=== PATIENT | female | born 1960 | race Caucasian/White ===

== ENCOUNTER 2016-07-22 09:11 | Observation (INO) | payer MEDICARE, OTHER ==
[~2016-07-22] VITALS: Ht 160 cm; Wt 46.0 kg
[2016-08-08] MEDS ORDERED: MS CONTIN DPS30 MG PO (17:37)
[2016-08-08] MEDS ORDERED: ASA325 MG PO (17:37)
[2016-08-08] MEDS ORDERED: NORCO 7.5-3251 EACH PO (17:37)
[2016-08-08] MEDS ORDERED: PROTONIX40 MG PO (17:37)
[2016-08-08] MEDS ORDERED: SYNTHROID DP0.075 MG PO (17:37)
[2016-08-08] MEDS ORDERED: ZANAFLEX4 MG PO (17:38)
[2016-08-08] MEDS ORDERED: VIBRAMYCIN-DPS100 M2 PO (17:38)
[2016-08-08] MEDS ORDERED: PROAIR RESPICL90 MCG IH (17:38)
[2016-08-08] MEDS ORDERED: THERA1 EACH PO (17:38)
--- NOTE | 2016-08-10 14:56 | CO ---
ADMIT: 08/05/2016 RM/LOC: 527 [facility] MR#: [id number] 2620 [facility] [address] [place] [phone] [place] [address] Consultation SEX: F AGE: 55 : 1960 DATE OF CONSULTATION: 08/06/2016 ATTENDING PHYSICIAN: Giuliana Saab MD CONSULTING PHYSICIAN: Joaquim Solano MD REASON FOR CONSULTATION: A 5-beat run of nonsustained ventricular tachycardia. HISTORY OF PRESENT ILLNESS: Braydon is a 55-year-old female, who I was asked to see in consultation from Dr. Giuliana Saab regarding 5-beat run of nonsustained ventricular tachycardia. Braydon has no prior cardiac history, but does have history of smoking, but says she quit a couple months ago. She states that she has never had any cardiac history. She was admitted for exchange of her pain pump which she is on for chronic back pain. This morning, it sounds like while she was sleeping, she had a 5-beat run of asymptomatic nonsustained ventricular tachycardia. She denies any chest pain or shortness of breath, but she is quite inactive as she is in a wheelchair secondary to her chronic pain. She lives in [place] and follows with Dr. Herrera as her primary care physician. PAST MEDICAL HISTORY: 1. History of chronic pain. 2. History of spine back surgery x5 with subsequent intrathecal pain pump. 3. History of hypothyroidism, on replacement. 4. History of hysterectomy. ALLERGIES: PENICILLIN, WHICH CAUSES DIFFICULTY BREATHING. CURRENT MEDICATIONS: 1. Aspirin daily. 2. Hydrocodone. 3. MS Contin. 4. Protonix. 5. Pain pump. 6. Multivitamins. 7. Synthroid 75 mcg daily. 8. Tizanidine 4 mg 3 by mouth 3 times a day. 9. Vitamin B12 daily. SOCIAL HISTORY: She lives in [place]. She is disabled. She says she quit smoking about 2 months ago. She denies any alcohol use. Denies any illicit drug use. FAMILY HISTORY: She says family history both in her mother and maternal grandmother of heart failure. She denies any family history of early coronary artery disease or strokes. REVIEW OF SYSTEMS: GENERAL: Denies any fever, chills, or sweats. ADMIT: 08/05/2016 RM/LOC: 527 [facility] MR#: [id number] [address] [address] BRAYDON PE[address]A [address] [place] [id number] Consultation SEX: F AGE: 55 : 1960 HEENT: Denies any visual changes. No difficulty swallowing. GI: She was nauseated this morning. Denies any vomiting or diarrhea. GENITOURINARY: Denies any dysuria, hematuria. MUSCULOSKELETAL: She has chronic back pain and uses a wheelchair. CARDIAC: Denies any chest pain or orthopnea. No PND. PULMONARY: Denies any shortness of breath. She does have history of smoking, but quit a couple months ago. NEUROLOGIC: No history of TIA or strokes. PSYCHIATRIC: Denies any anxiety or depression. ENDOCRINE and HEMATOLOGIC: Does have history of hypothyroidism on replacement. Denies any history of cancer. SKIN: Denies any rashes. All other systems reviewed and negative. PHYSICAL EXAMINATION: VITAL SIGNS: Blood pressure 142/84, pulse 96, respirations 16, and oxygen 93%. GENERAL: She is in no acute distress. She is alert and oriented and conversant but somewhat sleepy today. HEENT: Normocephalic, atraumatic. Moist mucous membranes. NECK: Supple. No lymphadenopathy. No carotid bruits. HEART: Regular rate and rhythm. No murmurs, rubs, or gallops. LUNGS: Clear to auscultation bilaterally. ABDOMEN: Soft, nontender, and nondistended. EXTREMITIES: Shows no cyanosis, clubbing, or edema. MUSCULOSKELETAL: She has scoliosis and curved back. Gait was not assessed. She uses a wheelchair. NEUROLOGIC: Cranial nerves II through XII intact. She moves all 4 extremities. PSYCHIATRIC: She is alert, oriented, appropriate. DIAGNOSTIC DATA: EKG shows sinus rhythm, and is a normal EKG. IMPRESSION AND PLAN: 1. Nonsustained ventricular tachycardia. 2. Chronic back pain. 3. Hypothyroidism. 4. History of tobacco abuse. ADMIT: 08/05/2016 RM/LOC: 527 [facility] MR#: [id number] [address] [id number] BRAYDON PE[address]A [address] [place] [address] Consultation SEX: F AGE: 55 : 1960 RECOMMENDATIONS: She was asymptomatic during this 5-beat run of nonsustained ventricular tachycardia. She actually may have been sleeping during that episode. She has no history of coronary disease and is not having any ischemic symptoms and her EKG is normal. At this point, we will plan an outpatient evaluation with an echocardiogram and stress test. I would place a 48 hour Holter monitor also to evaluate for any arrhythmias. If she has any chest pain or shortness of breath or feeling of syncope or near syncope, she will let us know. Otherwise, I will see her back after the above testing is completed. Joaquim Solano MD/ beatrice JOB #: [id number] CC: Giuliana Saab MD, Attending Physician Edmar Herrera MD, Family Physician MD Giuliana Welch MD
--- NOTE | 2016-08-22 23:19 | DS ---
ADMIT: 08/05/2016 RM/LOC: 527 [facility] MR#: [id number] [facility]#: [id number] 2620 [facility] [address] [place] [phone] BRAYDON [address] [address] General Discharge Summary SEX: F AGE: 55 : 1960 ADMISSION DATE: 08/05/2016 DISCHARGE DATE: 08/07/2016 REASON FOR ADMISSION: 1. Intrathecal drug infusion system (pain pump) catheter revision. 2. Episode of ventricular tachycardia. DIAGNOSES: 1. Post laminectomy pain syndrome. 2. Chronic pain syndrome. 3. Ventricular tachycardia (self-limiting). 4. Encounter for adjustment and management of other implanted nervous system device. HISTORY OF PRESENT ILLNESS: Braydon is a 55-year-old patient of mine in the pain clinic. She was admitted to the hospital for revision of her intrathecal catheter, which was defective. She tolerated her surgery without incident. Postoperatively, she was kept in the hospital to observe for delayed respiratory depression and the plan was to discharge her the following day. During the night, Braydon had a short run of ventricular tachycardia and was asymptomatic. Cardiology was consulted. MEDICATIONS: 1. Low-dose aspirin. 2. Protonix. 3. Intrathecal Dilaudid/bupivacaine/clonidine through [employer] intrathecal drug infusion system. 4. Synthroid. 5. Tizanidine. 6. Vitamin B12. ALLERGIES: MEDICATION ALLERGIES TO PENICILLIN, WHICH CAUSES DIFFICULTY BREATHING. NON-MEDICATION ALLERGIES, NONE. PAST MEDICAL HISTORY: Noncontributory. Braydon has had no history of any cardiac rhythm problems, chest pain, or shortness of breath. PAST SURGICAL HISTORY: Hysterectomy, lumbar spine surgery x5, intrathecal pump implant. PHYSICAL EXAMINATION: GENERAL: Braydon is alert and oriented. VITAL SIGNS: Stable. Braydon ambulates using a motorized chair because she is unable to walk for more than a few steps, although she is able to bear her own weight for brief periods of time. LUNGS: Clear. HEART: Regular rate and rhythm without murmur. ABDOMEN: Soft, nontender. Bowel sounds are present. NEUROLOGICAL: She is intact. Braydon sits in a kyphotic posture in her hospital bed. ADMIT: 08/05/2016 RM/LOC: 527 [facility] MR#: [id number] [address] [id number] BRAYDON PEÑA [address] [place] [address] General Discharge Summary SEX: F AGE: 55 : 1960 ASSESSMENT: 1. Postlaminectomy pain syndrome. 2. Chronic pain syndrome. 3. Self-limited episode of ventricular tachycardia. 4. Encounter for adjustment and management of other implanted nervous system device. HOSPITAL COURSE: Braydon was taken to the operating room on her day of admission and her intrathecal pump catheter was replaced without incident. She tolerated the procedure well and was taken to the floor, where she was admitted for observation. Braydon was placed on telemetry and pulse oximetry to monitor for delayed respiratory depression. The reason for admission was to monitor for delayed respiratory depression because her initial dose of intrathecal Dilaudid was 10 mg/24 hours. After examining her previously placed catheter, I determined that it was malfunctioning and I could not be sure how much actual Dilaudid Braydon was getting in the intrathecal space. For that reason, I turned her pump down to 1 mg/24 hours and kept her in for observation. During the night, Braydon had an episode of ventricular tachycardia that was approximately 7 beats long. She remained asymptomatic. Cardiology was consulted and they saw her the following morning. Braydon was placed on a 24- hour Holter monitor and was instructed to follow up with Cardiology in the office 1 month after discharge. Braydon was discharged in stable condition. She will follow up in the office with Cardiology as directed, and she will follow up for wound check from her catheter revision in 7 days. She was instructed to call the office if she has any questions or problems associated with this particular hospital admission. Giuliana Saab MD/ beatrice JOB #: [id number] CC: Giuliana Saab MD, Attending Physician Edmar Herrera MD, Family Physician Joaquim Solano MD
--- NOTE | 2016-08-22 23:19 | OR ---
ADMIT: 08/05/2016 RM/LOC: 527 [facility] MR#: [id number] [address] [facility] [address] [place] [phone] BRAYDON ORTEGA [address] [place] [address] Operative/Delivery Room Report SEX: F AGE: 55 : 1960 SURGERY DATE: 08/05/2016 SURGEON: Giuliana Saab MD PROCEDURE: Revision of [employer] intrathecal drug infusion system (pain pump) catheter. PREOPERATIVE DIAGNOSES: 1. M96.1 postlaminectomy syndrome, not elsewhere classified. 2. G89.4 chronic pain syndrome. 3. Z45.49 encounter for adjustment and management of other implanted nervous system device. POSTOPERATIVE DIAGNOSES: 1. M96.1 postlaminectomy syndrome, not elsewhere classified. 2. G89.4 chronic pain syndrome. 3. Z45.49 encounter for adjustment and management of other implanted nervous system device. COMPUTER ASSEMBLER: None. FLUOROSCOPY TIME: See Radiology records. ESTIMATED BLOOD LOSS: Less than 20 mL. ANESTHESIA: General endotracheal anesthesia. DESCRIPTION OF PROCEDURE: Ms. Ortega is a 55-year-old patient, who I see in the Pain Clinic her in [place]. She has chronic, severe intractable low back pain and leg radiculopathy associated with her diagnosis of postlaminectomy syndrome. Braydon has had an intrathecal pump for quite sometime. Over the past 8 to 12 months, Braydon has been experiencing increased pain. An extensive workup has failed to reveal an etiology for her increased pain. Ultimately, I did a catheter dye study and was unable to aspirate catheter fluid from the sideport of the pump, indicating a malfunctioning intrathecal catheter. She is here at [facility] today for a revision of her catheter. The plan is to place an entirely new catheter in the intrathecal space and tunnel it to the pump in the right lower quadrant of her abdominal wall. I explained the procedure to Braydon and her in the preoperative holding area including the discussion with the potential risks of bleeding and infection. Their questions were answered. A consent was signed. The patient was given preoperative antibiotics and then taken to the operating room and placed on an operating room table. General endotracheal anesthesia was induced. Once the patient was anesthetized, the back and right flank area (the patient was initially placed prone) were both prepped and draped in the usual sterile fashion. An incision was made over her previous catheter implant site. Electrocautery was used to dissect down to the catheter anchor. The anchor was removed from the catheter. I attempted to pull the catheter ADMIT: 08/05/2016 RM/LOC: 527 [facility] MR#: [id number] [address] [address] BRAYDON ORTEGA [address] [place] [address] Operative/Delivery Room Report SEX: F AGE: 55 : 1960 out from the intrathecal space, but was unable to do so. I then ligated the catheter and tied it off with 2-0 silk suture to prevent any CSF leak. A 14- gauge, 4-inch Tuohy needle was then advanced using fluoroscopic guidance, and the tip entered the intrathecal space without paresthesia or bleeding. There was vigorous flow of CSF when the stylet was removed from the needle. A new Medtronic intrathecal catheter was placed through the needle and observed under fluoroscopy as it was positioned over the dorsal columns in the intrathecal space at approximately the T7 level of the spinal column. The needle was removed along with the stylet from the catheter. A new anchor was placed over the catheter and secured in the base of the wound with 2-0 silk suture. A small stab incision was then made in the skin of the right flank. A tunnelling device was used to tunnel from the back incision to the stab wound in the right flank. The catheter was passed through the tunnelling device, and the tunnelling device was removed distally. The catheter tip was then tied off with silk suture to prevent CSF leak. The catheter was then coiled up underneath an Op-Site dressing and secured over the stab wound in the right flank. The back incision was then irrigated with antibiotic solution and closed in 2 layers with 2-0 and 3-0 Vicryl. The skin was approximated with skin renata. The drapes were removed. The patient was repositioned supine with a towel roll underneath her right hip. The entire abdominal wall and right flank was then again prepped and draped in the usual sterile fashion. An incision was made over the pump pocket along her implant scar. Electrocautery was used to dissect down to and open the pump pocket. The pump was removed. The excess catheter was also removed distally. The tunnelling device was then used to tunnel from the stab wound in the right flank to the pump pocket. Connecting hardware was then attached to the catheter and secured to the pump. The pump pocket was irrigated with antibiotic solution. The excess catheter was coiled up underneath the pump and placed into the pump pocket. The pump pocket was then closed in 2 layers with 2-0 and 3-0 Vicryl. The skin was approximated once again with skin renata. The stab wound in the right flank was also closed with renata. ADMIT: 08/05/2016 RM/LOC: 527 [facility] MR#: [id number] [address] [place] [id number] BRAYDON ORTEGA [facility] [place] [address] Operative/Delivery Room Report SEX: F AGE: 55 : 1960 Ms. Ortega is going to take antibiotics postoperatively for approximately 5 days to prevent any infectious complication. I am going to keep her overnight to observe for a delayed respiratory depression. Her dose prior to today's pump replacement was Dilaudid 10 mg to the intrathecal space. Since I am not convinced that the catheter was actually delivering that amount to the intrathecal space, I reduced her dose to 1 mg per 24 hours. Providing she is stable through the night, Braydon will be discharged in the morning and followup in the clinic for a wound check in 1 week. She was instructed to call the clinic if she has any questions or problems associated with the surgery that was done today. Giuliana Saab MD/ beatrice JOB #: [id number] CC: Giuliana Saab MD, Attending Physician Edmar Herrera MD, Family Physician Pain Clinic
== END 2016-08-07 15:31 | disposition home or self-care (01) ==
LOC: WOR 08-05 11:03 → 5MS 08-05 16:14
PROVIDERS: ADMIT Anesthesiology Pain Medicine
PROC: 0JH70VZ Insertion of Infusion Pump into Back Subcutaneous Tissue and Fascia, Open Approach (ICD-10-PCS; principal; 2016-08-05)
PROC: 0JPT0VZ Removal of Infusion Pump from Trunk Subcutaneous Tissue and Fascia, Open Approach (ICD-10-PCS; principal; 2016-08-05)
DX: G89.4 Chronic pain syndrome (principal); M96.1 Postlaminectomy syndrome, not elsewhere classified; I47.2 Ventricular tachycardia; Z45.49 Encounter for adjustment and management of other implanted nervous system device; E03.9 Hypothyroidism, unspecified; Z88.0 Allergy status to penicillin; Z79.82 Long term (current) use of aspirin; Z90.710 Acquired absence of both cervix and uterus; Z98.890 Other specified postprocedural states; Z79.891 Long term (current) use of opiate analgesic